=== PATIENT | female | born 1955 | race Caucasian/White ===

== ENCOUNTER 2018-04-26 09:12 | Outpatient (CLI) | payer BC ==
--- NOTE | 2018-04-26 10:48 | RAD ---
CHEST 2 VIEWS: HISTORY: Dyspnea. COMPARISON: Chest radiograph 11/14/2012. FINDINGS: Focal area of scarring left lung base. The remainder of the lungs are clear. No pneumothorax. Subt le scarring right lung apex. Cardiac silhouette and mediastinal contours are within normal limits. IMPRESSION: No acute intrathoracic abnormality. POS: [facility]
== END 2018-04-26 09:13 | disposition home or self-care (01) ==
LOC: RAD 09:12
PROVIDERS: ATTEND Internal Medicine Critical Care Medicine
DX: R06.00 Dyspnea, unspecified (principal)
CPT/HCPCS: 71046

== ENCOUNTER 2018-05-10 08:30 | Outpatient (CLI) | payer BC | END 2018-05-10 08:31 | disposition home or self-care (01) | LOC: CP 08:30 | PROVIDERS: ATTEND Internal Medicine Critical Care Medicine | DX: R06.09 Other forms of dyspnea (principal) | CPT/HCPCS: 94010; 94727; 94729 ==

== ENCOUNTER 2018-05-21 13:01 | Outpatient (CLI) | payer BC ==
--- NOTE | 2018-05-21 14:25 | NM ---
VQ SCAN: HISTORY: Dyspnea. Chest pain. TECHNIQUE: A ventilation perfusion scan was performed using 10 mCi Xenon-133 by inhalation for the ventilation s tudy followed by the intravenous administration of 6.5 mCi technetium-99m MAA for the perfusion scan. FINDINGS: Correlation made with chest radiograph from same date. Fairly homogeneous tracer distribution is seen in the ventilation perfusion scan without mismatched, pleural based, wedge shaped, segmental or subsegmental defects. Tracer retention on washout phase of ventilation study involving both lungs. IMPRESSION: No evidence of pulmonary embolism. POS: C
--- NOTE | 2018-05-21 14:29 | RAD ---
PA AND LATERAL VIEWS OF CHEST: Date: 05/21/18 HISTORY: Dyspnea. FINDINGS: The heart size is normal. The lungs are expanded without focal areas of consolidation, pneumothoraces , or pleural effusions. No acute osseous abnormalities are seen. IMPRESSION: No radiographic evidence of acute cardiopulmonary process. POS: [facility]
== END 2018-05-21 13:02 | disposition home or self-care (01) ==
LOC: NM 13:01
PROVIDERS: ATTEND Internal Medicine Critical Care Medicine
DX: R06.00 Dyspnea, unspecified (principal)
CPT/HCPCS: 71046; 78582; A9540; A9558

== ENCOUNTER 2020-05-24 12:48 | Observation (INO) | payer BC ==
[~2020-05-24 12:48] MED LIST: Iopamidol-370 76% 500 ML 1 ML ONE; Lidocaine 1% PF 5 ML VIAL ONE; Ondansetron PF 4 MG/2 ML Vial ONE; PHENYLEPHRINE-NS 100 MCG/ML 10 ML SYRINGE ONE; PROPOFOL 200 MG/20 ML VIAL ONE; Rocuronium Bromide 10 MG/ML (10ML VIAL) ONE; Succinylcholine 200 MG/10 ml SYRINGE FS ONE; diphenhydrAMINE 50 MG/ML VIAL ONE
[2020-05-24 13:39] LABS: #Lymphocytes 0.6 thou/uL (1.20-3.40); #Monocytes 0.7 thou/uL (0.11-0.59); #Neutrophils 11.8 thou/uL (1.40-6.50); %Basophils 0.2 % (0.0-1.0); %Lymphocytes 4.5 % (21.0-51.0); %Monocytes 5.6 % (0.0-10.0); %Neutrophils 89.6 % (42.0-75.0); Hemoglobin 13.2 g/dL (12.0-16.0); Mean Corpuscular HGB CONC 34.2 g/dL (32.0-36.0); Mean Corpuscular Hemoglobin 32.3 pg (27.0-31.0); Mean Corpuscular Volume 94.4 fL (78.0-98.0); Mean Platelet Volume 7.9 fL (7.4-10.4); Platelet Count 267 thou/uL (130-400); RBC Distribution Width 12.5 % (11.5-14.5); Red Blood Cell (RBC) Count 4.09 mill/uL (4.20-5.40); White Blood Cell (WBC) Count 13.2 thou/uL (4.8-10.8)
[2020-05-24 14:03] LABS: ALT (SGPT) 62 U/L (8-55); AST (SGOT) 84 U/L (5-34); Albumin 4.1 g/dL (3.4-4.8); Alkaline Phosphatase 111 U/L (40-110); Anion Gap 16 mmol/L (10-20); BUN (Urea Nitrogen) 12 mg/dL (9.8-20.1); Bilirubin, Total 1.3 mg/dL (0.2-1.2); Calc. Creatinine Clearance 0 mL/min (70-130); Calcium 8.7 mg/dL (7.8-10.44); Carbon Dioxide 24 mmol/L (23-31); Chloride 95 mmol/L (98-107); Globulin 2.7 g/dL (2.4-3.5); Glucose 249 mg/dL (80-115); Lipase Less than 4 U/L (8-78); Potassium 3.8 mmol/L (3.5-5.1); Protein, Total 6.8 g/dL (5.8-8.1); Sodium 131 mmol/L (136-145)
[2020-05-24] MEDS ORDERED: Ondansetron PF 4 MG/2 ML Vial ONE (14:24)
[2020-05-24] MEDS ORDERED: Morphine 4 MG/ML VIAL ONE (14:24)
[2020-05-24] MEDS ORDERED: Piperacillin/Tazobactam 4.5 GM VIAL ONE (16:07)
[2020-05-24] MEDS ORDERED: Lidocaine 1% w/Epinephrine 1:100K 20 ML VIAL ONE (16:11)
[2020-05-24] MEDS ORDERED: Bupivacaine 0.25% HCL 30 ML VIAL ONE (16:11)
[2020-05-24 16:26] LABS: Bacteria/HPF None Seen HPF (None Seen); Bilirubin Negative (Negative); Blood, Urine Negative (Negative); Clarity Clear (Clear); Glucose, Urine (Dipstick) 500 mg/dL (Negative); Ketone, Urine 20 mg/dL (Negative); Leukocyte 25 Leu/uL (Negative); Nitrite Negative (Negative); Protein, Urine (Dipstick) Negative (Neg-Trace); RBC/HPF 0-3 HPF (0-3); Specific Gravity, Urine 1.032 (1.002-1.036); Squamous Epithelial 0-3 HPF (0-3); Urobilinogen Normal mg/dL (Less than 2); pH, Urine 5.5 (5.0-9.0)
[2020-05-24] MEDS ORDERED: Fentanyl 100 MCG/2 ML VIAL ONE (16:34)
[2020-05-24] MEDS ORDERED: Midazolam HCl 2 mg/2 ml Vial ONE (16:55)
[2020-05-24] MEDS ORDERED: Promethazine HCl 25 MG/ML VIAL IM PRN ×2 (17:17→19:41)
[2020-05-24] MEDS ORDERED: Ondansetron HCl/PF 4 MG/2 ML Vial IVP PRN (17:17)
[2020-05-24] MEDS ORDERED: Promethazine HCl 25 MG/ML VIAL SLOW IVP PRN (17:17)
[2020-05-24 17:26] LABS: SARS-CoV-2 NAA Rapid Test Not Detected (NotDetected)
[2020-05-24] MEDS ORDERED: SUGAMMADEX SODIUM 200 MG/2 ML VIAL ONE (18:21)
[2020-05-24] MEDS ORDERED: Sodium Chloride For Inhalation 0.9% 3 ML NEB ONE (19:08)
[2020-05-24] MEDS ORDERED: Racepinephrine 2.25% 0.5 ML NEB ONE (19:08)
[2020-05-24] MEDS ORDERED: Labetalol HCl 100 MG/20 ML VIAL ONE (19:18)
[2020-05-24] MEDS ORDERED: Ondansetron PF 4 MG/2 ML Vial IVP PRN (19:41)
[2020-05-24] MEDS ORDERED: Dextrose 5% in Water 1,000 ML IV PRN (19:41)
[2020-05-24] MEDS ORDERED: HYDROcodone/Acetaminophen 10/325 mg Tablet PO PRN (19:41)
[2020-05-24] MEDS ORDERED: Insulin Regular 300 UNITS/3 ML VIAL SC PRN (19:41)
[2020-05-24] MEDS ORDERED: Dextrose 50% Abboject 50 ML SYRINGE SLOW IVP PRN (19:41)
[2020-05-24] MEDS ORDERED: hydrALAZINE 20 MG/ML VIAL SLOW IVP PRN (19:41)
[2020-05-24] MEDS ORDERED: Morphine 2 MG/ML VIAL SLOW IVP PRN (19:41)
[2020-05-24 21:06] LABS: INR-International Normal Ratio 1.4; PTT 31.9 sec (22.9-36.1); Prothrombin Time 17.5 sec (12.0-14.7)
[2020-05-24] MEDS: Lactated Ringer's 1,000 ML IV SCH (22:16)
[2020-05-24] MEDS: Famotidine/PF 20 mg/2ml Vial SLOW IVP SCH (22:16)
[2020-05-24] MEDS: Famotidine 20 MG TAB PO SCH (22:16)
[2020-05-24 22:53] VITALS: BMI 26.7
[2020-05-24] MEDS: Ketorolac Tromethamine 30 MG/ML VIAL IVP SCH (23:33)
[2020-05-24] MEDS: Piperacillin/Tazobactam 3.375 GM in Sodium Chloride 0.9% 100 ML IVPB SCH (23:33)
[2020-05-25 05:26] LABS: #Neutrophils 10.3 thou/uL (1.40-6.50); %Basophils 0.2 % (0.0-1.0); %Eosinophils 0.1 % (0.0-10.0); %Lymphocytes 7.9 % (21.0-51.0); %Monocytes 7.9 % (0.0-10.0); %Neutrophils 83.9 % (42.0-75.0); Mean Corpuscular Hemoglobin 31.6 pg (27.0-31.0); Mean Corpuscular Volume 95.6 fL (78.0-98.0); Mean Platelet Volume 7.9 fL (7.4-10.4); Platelet Count 237 thou/uL (130-400); RBC Distribution Width 12.5 % (11.5-14.5); White Blood Cell (WBC) Count 12.2 thou/uL (4.8-10.8)
[2020-05-25] MEDS: Ketorolac Tromethamine 30 MG/ML VIAL IVP SCH ×3 (05:33→18:30)
[2020-05-25] MEDS: Piperacillin/Tazobactam 3.375 GM in Sodium Chloride 0.9% 100 ML IVPB SCH ×3 (05:33→18:30)
[2020-05-25 05:43] LABS: Anion Gap 13 mmol/L (10-20); BUN (Urea Nitrogen) 9 mg/dL (9.8-20.1); Calc. Creatinine Clearance 84 mL/min (70-130); Calcium 8.2 mg/dL (7.8-10.44); Carbon Dioxide 20 mmol/L (23-31); Chloride 101 mmol/L (98-107); Glucose 284 mg/dL (80-115); Potassium 4.2 mmol/L (3.5-5.1); Sodium 130 mmol/L (136-145)
[2020-05-25] MEDS: Lactated Ringer's 1,000 ML IV SCH ×3 (06:56→18:09)
[2020-05-25] MEDS: Famotidine/PF 20 mg/2ml Vial SLOW IVP SCH (08:24)
[2020-05-25] MEDS: Famotidine 20 MG TAB PO SCH (08:25)
[2020-05-25 08:32] VITALS: TEMP 97.7
[2020-05-25] MEDS ORDERED: HUMALOG KWIKPEN SC SCH (10:15)
[2020-05-25] MEDS ORDERED: LANTUS SOLOSTAR SC SCH (10:30)
[2020-05-25] MEDS ORDERED: VERAPAMIL 40 MG PO SCH ×2 (10:30→21:00)
[2020-05-25 12:23] VITALS: BP 135/73
[2020-05-26] MEDS ORDERED: LANTUS SOLOSTAR SC SCH (09:00)
== END 2020-05-25 19:45 | disposition home or self-care (01) ==
LOC: ERS 12:48 → SDC 16:41 → SURG B 18:55 → UNDOADMOB 19:41
PROVIDERS: ADMIT Specialist; ATTEND Specialist
PROC: 0DTJ4ZZ Resection of Appendix, Percutaneous Endoscopic Approach (ICD-10-PCS; principal; 2020-05-25)
DX: K35.32 Acute appendicitis with perforation, localized peritonitis, and gangrene, without abscess (principal); E11.9 Type 2 diabetes mellitus without complications; I10 Essential (primary) hypertension; Z79.4 Long term (current) use of insulin; Z79.899 Other long term (current) drug therapy; Z88.2 Allergy status to sulfonamides; Z88.5 Allergy status to narcotic agent; Z88.6 Allergy status to analgesic agent; Z88.8 Allergy status to other drugs, medicaments and biological substances; Z91.018 Allergy to other foods; Z20.822 Contact with and (suspected) exposure to COVID-19
CPT/HCPCS: 36415; 36416; 71045; 74177; 80048; 80053; 81003; 81015; 83690; 85025; 85610; 85730; 87070; 87076; 87077; 87186; 87205; 88304; 93005; 96361; 96365; 96374; 96375; 96376; G0378; J1200; J1815; J1885; J2250; J2270; J2405; J2543; J2704; J3010; J3490; Q9967; S0020; S0028; U0002

== ENCOUNTER 2020-05-28 00:21 | Emergency (ER) | payer BC ==
[2020-05-28 01:34] LABS: Bacteria/HPF None Seen HPF (None Seen); Bilirubin Negative (Negative); Blood, Urine 1+ (Negative); Clarity Clear (Clear); Glucose, Urine (Dipstick) Normal (Negative); Ketone, Urine Trace mg/dL (Negative); Leukocyte 250 Leu/uL (Negative); Nitrite Negative (Negative); Protein, Urine (Dipstick) Negative (Neg-Trace); RBC/HPF 21-50 HPF (0-3); Specific Gravity, Urine 1.005 (1.002-1.036); Squamous Epithelial None Seen HPF (0-3); Urobilinogen Normal mg/dL (Less than 2)
== END 2020-05-28 02:05 | disposition home or self-care (01) ==
LOC: ERS 00:21
DX: Z46.6 Encounter for fitting and adjustment of urinary device (principal)
CPT/HCPCS: 81003; 81015; 87086; 99283

== ENCOUNTER 2020-06-03 15:41 | Outpatient (CLI) | payer BC | END 2020-06-03 15:42 | disposition home or self-care (01) | LOC: BICRAD 15:41 | PROVIDERS: ATTEND Internal Medicine Cardiovascular Disease | DX: R06.00 Dyspnea, unspecified (principal); R91.8 Other nonspecific abnormal finding of lung field | CPT/HCPCS: 71046 ==

== ENCOUNTER 2020-08-27 07:01 | Outpatient (CLI) | payer BC ==
[2020-08-27 07:41] LABS: Estimated GFR-MDRD - POC Greater than 90
== END 2020-08-27 07:02 | disposition home or self-care (01) ==
LOC: BICMRI 07:01
PROVIDERS: ATTEND Family Medicine
DX: N31.9 Neuromuscular dysfunction of bladder, unspecified (principal); R26.81 Unsteadiness on feet; I67.89 Other cerebrovascular disease; M47.816 Spondylosis without myelopathy or radiculopathy, lumbar region
CPT/HCPCS: 70553; 72156; 72158; 82565

== ENCOUNTER 2021-11-30 17:30 | Outpatient (CLI) | payer MEDICARE, OTHER | END 2021-11-30 17:31 | disposition home or self-care (01) | LOC: SLEEPLAB 17:30 | PROVIDERS: ATTEND Internal Medicine Critical Care Medicine | DX: G47.33 Obstructive sleep apnea (adult) (pediatric) (principal); R06.83 Snoring; J45.909 Unspecified asthma, uncomplicated; I50.9 Heart failure, unspecified; G47.00 Insomnia, unspecified; E11.9 Type 2 diabetes mellitus without complications; R09.02 Hypoxemia | CPT/HCPCS: 95800 ==

== ENCOUNTER 2022-02-22 19:30 | Outpatient (CLI) | payer MEDICARE, OTHER | END 2022-02-22 19:31 | disposition home or self-care (01) | LOC: SLEEPLAB 19:30 | PROVIDERS: ATTEND Internal Medicine Medical Oncology | DX: G47.33 Obstructive sleep apnea (adult) (pediatric) (principal) | CPT/HCPCS: 95811 ==